=== PATIENT | female | born 1970 | race Caucasian/White ===

== ENCOUNTER 2017-06-05 23:40 | Emergency (ER) | payer OTHER ==
[~2017-06-05] VITALS: Ht 157.5 cm; Wt 68.9 kg
--- NOTE | ~2017-06-05 | CT2 ---
[facility] A Service of [facility] RADIOLOGY TEXT RESULTS PATIENT: ROSALINDA OKEEFE LOCATION: SED : 72 UNIT #: [id number] AGE: [address]: Gianfranco Ivy MD SEX: F ORDER DR: [id number] [address] [address] [id number] MR#: [id number] Acc #: [id number] NAME: ROSALINDA OKEEFE : 1970 SEX: F STUDY DATE/TIME: 06/06/2017 1:32 UNIT: SED ROOM: STUDY DESCRIPTION: CT Abd and Pelv W Cont Attending Physician: Gianfranco Ivy M.D. Ordering Physician: Gianfranco Ivy M.D. Primary Care Physician: Carlos Narayan M.D. MEDICAL IMAGING REPORT This report is preliminary unless electronic signature is present. EXAM CT abdomen and pelvis with contrast, 06/06/2017 HISTORY 46-year-old female in the ED complaining of 1-day history of bilateral lower abdomen pain with nausea. TECHNIQUE CT examination of the abdomen and pelvis was performed with IV contrast. GI contrast material was not consumed. This CT examination was performed with one or more of the following radiation dose reduction techniques: automatic exposure control, adjustment of mA and/or kV according to patient size, and iterative reconstruction. FINDINGS ABDOMEN: Liver, pancreas and spleen are normal in size and appearance. No gallbladder distension or bile duct dilatation. Both kidneys are negative with no evidence of urinary obstruction. Small bowel and colon are normal in caliber and appearance, as imaged. The appendix is not well seen but is negative where visualized. PELVIS: Uterus, ovaries, urinary bladder and rectum are within normal limits. No inguinal hernia or abdominal wall hernia. Limited lung base images show no active disease in the lower chest. IMPRESSION Negative CT examination of the abdomen and pelvis. Dictated by... [facility] A Service of [facility] RADIOLOGY TEXT RESULTS PATIENT: RSOALINDA OKEEFE LOCATION: SED : 72 UNIT #: [id number] AGE: [address]: Gianfranco Ivy MD SEX: F ORDER DR: Carlos Shukla M.D. THIS IS AN ELECTRONICALLY VERIFIED REPORT Carlos Shukla M.D. at 06/06/2017 9:46 PM GALO/lashay TD: 06/06/2017 10:17 JOB #: [id number] MEDICAL IMAGING REPORT Page 1 of 1
[2017-06-05] MEDS ORDERED: ZOLOFT100 MG PO (23:49)
[2017-06-05] MEDS ORDERED: OMEPRAZOLE20 M2 PO (23:49)
[2017-06-06 00:42] LABS: BASOPHIL% 0.6 % (0-2.5); EOSINOPHIL# 0.1 X10e3 (0-0.7); EOSINOPHIL% 2.1 % (0.0-7.0); HEMATOCRIT 38.4 % (35.0-45.0); LYMPHOCYTE# 1.1 X10e3 (1.0-3.5); LYMPHOCYTE% 16.4 % (17.0-45.0); MEAN CELL VOLUME 91.6 FL (83-96); MEAN CORPUSCULAR HGB CONC 33.8 g/dL (30-36); MEAN PLATELET VOLUME 8.5 FL (6.5-11.5); MONOCYTE# 0.5 X10e3 (0-1.0); NEUTROPHIL# 4.9 X10e3 (1.5-7.1); NEUTROPHIL% 72.9 % (40-75); PLATELET COUNT 272 X10e3 (140-420); RED CELL DISTRIBUTION WIDTH 12.8 % (11.0-15.5); WHITE BLOOD COUNT 6.8 X10e3 (4.0-10.5)
[2017-06-06 00:43] LABS: DIFF IND NO
[2017-06-06 01:00] LABS: ALBUMIN SERUM 4.3 g/dL (3.5-5.0); ALKALINE PHOSPHATASE 49 U/L (32-92); ALT (SGPT) 19 U/L (10-40); AST (SGOT) 21 U/L (10-42); BILIRUBIN, DIRECT <0.1 mg/dL (0.0-0.2); BILIRUBIN,INDIRECT 0.3 mg/dL (0.0-0.9); BILIRUBIN,TOTAL 0.4 mg/dL (0.2-2.0); BLOOD UREA NITROGEN 17 mg/dL (9-23); BUN/CREATININE RATIO 24.28; CALCIUM SERUM 8.5 mg/dL (8.4-10.2); CARBON DIOXIDE 27 mmol/L (22-31); CHLORIDE 111 mmol/L (100-111); CREATININE SERUM 0.7 mg/dL (0.6-1.4); GLOM FILT RATE Estimated 104.6 mL/min (>60); GLUCOSE FASTING 108 mg/dL (70-110); LIPASE 123 U/L (22-51); PROTEIN TOTAL SERUM 7.2 g/dL (6.0-8.3); SODIUM 140 mmol/L (135-145)
[2017-06-12] MEDS ORDERED: BENTYL20 MG PO (07:33)
[2017-06-12] MEDS ORDERED: FLONASE ALLERG9.9 ML (07:33)
[2017-06-12] MEDS ORDERED: ZYRTEC10 M2 PO (07:33)
== END 2017-06-06 03:22 | disposition home or self-care (01) ==
LOC: SED 23:40
PROVIDERS: Physician Assistant
DX: R10.84 Generalized abdominal pain (principal); R63.0 Anorexia; R11.0 Nausea; K21.9 Gastro-esophageal reflux disease without esophagitis
CPT/HCPCS: 74177; 80048; 80076; 83690; 84703; 85025; 96361; 96374; 96375; 99284; J2270; J2405; Q9967

== ENCOUNTER → 2017-06-08 | Outpatient (CLI) | payer OTHER ==
[~2017-06-08] MED LIST: BENTYL20 MG PO; FLONASE ALLERG9.9 ML; OMEPRAZOLE20 M2 PO; ZOLOFT100 MG PO; ZYRTEC10 M2 PO
[2017-06-08 10:26] LABS: HEMATOCRIT 38.9 % (35.0-45.0); HEMOGLOBIN 12.9 gm/dL (12.0-16.0); MEAN CELL VOLUME 91.1 FL (83-96); MEAN CORPUSCULAR HEMOGLOBIN 30.3 PG (28-34); MEAN CORPUSCULAR HGB CONC 33.3 g/dL (30-36); MEAN PLATELET VOLUME 8.6 FL (6.5-11.5); RED BLOOD COUNT 4.27 X10e (3.90-5.30); RED CELL DISTRIBUTION WIDTH 12.3 % (11.0-15.5); WHITE BLOOD COUNT 5.9 X10e3 (4.0-10.5)
[2017-06-08 11:05] LABS: ALBUMIN SERUM 4.4 g/dL (3.5-5.0); BILIRUBIN,TOTAL 0.7 mg/dL (0.2-2.0); BUN/CREATININE RATIO 17.14; CALCIUM SERUM 9.5 mg/dL (8.4-10.2); CREATININE SERUM 0.7 mg/dL (0.6-1.4); GLOM FILT RATE Estimated 104.6 mL/min (>60); POTASSIUM 4.1 mmol/L (3.5-5.1); PROTEIN TOTAL SERUM 7.5 g/dL (6.0-8.3)
== END | disposition home or self-care (01) ==
LOC: CLAB 09:28
PROVIDERS: Internal Medicine
DX: K85.90 Acute pancreatitis without necrosis or infection, unspecified (principal)
CPT/HCPCS: 36415; 80053; 82150; 83690; 85027; 86140

== ENCOUNTER → 2017-06-12 | Day surgery (SDC) | payer OTHER | END | disposition home or self-care (01) | LOC: COPS 07:05 | DX: K29.80 Duodenitis without bleeding (principal); K29.50 Unspecified chronic gastritis without bleeding; K20.9 Esophagitis, unspecified; Z79.899 Other long term (current) drug therapy; Z98.890 Other specified postprocedural states | CPT/HCPCS: 84703; 88305; 88312; J2250 ==

== ENCOUNTER → 2017-06-13 | Outpatient (CLI) | payer OTHER ==
--- NOTE | ~2017-06-13 | ST ---
Unit #: [id number] #: [id number] Patient: ROSALINDA OKEEFE [id number] [address] [address] [id number] O MR#: [id number] NAME: ROSALINDA OKEEFE : 1970 SEX: F STUDY DATE/TIME: 06/22/2017 UNIT: CEKG ROOM: STUDY DESCRIPTION: Attending Physician: Erasmo Gutierrez M.D. Referring Physician: Erasmo Gutierrez M.D. Primary Care Physician: Carlos Narayan M.D. CARDIOLOGY REPORT EXAM Stress ECG. INDICATION Dyspnea. SUMMARY The patient exercised on Leonard protocol for 4 minutes and 47 seconds. Heart rate increased from 86 to 176, within the first minute of exercise the heart rate was 123. Blood pressure increased from 103/62 to 130/80. At the end of stage 1 of exercise, the heart rate was 157. The patient did not experience any angina. The resting ECG was normal. With stress there was significant T-wave inversion in leads 2, 3, AVF, V4 through V6. With continued stress T-waves became biphasic in V3, but otherwise, stayed inverted. There was significant shortness of breath. There were no significant ST changes. There was mild lightheadedness. IMPRESSION 1. Stress ECG technically shows no ST depression which qualifies as ischemia. However, the immediate T-wave inversion is suggestive of ischemia. 2. Severe deconditioning based on the patient's age. 3. Very rapid heart rate increased within one minute of exercise. 4. Consider stress nuclear study, or stress echo. Further evaluation is recommended. Dictated by... Skip Kaplan M.D. SAL/swapna TD: 06/23/2017 10:19 JOB #: [id number] Unit #: [id number] #: [id number] Patient: ROSALINDA OKEEFE CARDIOLOGY REPORT Page 1 of 1 X Skip Kaplan MD CARDIOLOGY REPORT
--- NOTE | ~2017-06-13 | OR ---
Unit #: [id number] #: [id number] Patient: ROSALINDA OKEEFE [id number] [address] [address] [id number] O MR#: [id number] NAME: ROSALINDA OKEEFE ROOM: Date of Procedure: 06/12/2017 Admission Date: 06/13/2017 Surgeon: Rodriguez Sam M.D. : 1970 Attending Physician: Erasmo Gutierrez M.D. Referring Physician: Erasmo Gutierrez M.D. Primary Care Physician: Carlos Narayan M.D. OPERATIVE REPORT PROCEDURE PERFORMED Esophagogastroduodenoscopy with biopsy. INDICATIONS FOR PROCEDURE The patient with severe epigastric pain, nausea, vomiting. Recent CT scan and lab work have been unremarkable. MEDICATIONS Monitored anesthesia. POSTOPERATIVE FINDINGS 1. Small segment of Ortiz esophagus. Biopsies taken. 2. Diffuse gastritis and mild duodenitis. Biopsies taken separately from both places. PLAN Continue with PPI therapy and symptomatic treatment. DESCRIPTION OF PROCEDURE The patient was explained of the procedure, risks, and benefits along with the risk and benefits of anesthesia. She was brought to the endoscopy room. Propofol anesthesia was given. Bite block was placed. The scope was passed down the mouth into the esophagus, stomach, duodenum, and distal duodenum. Findings as described. Biopsies were taken. Gently, I pulled the scope out of the patient's mouth. She tolerated it well. Dictated by... Anat Wang/lissa TD: 06/12/2017 16:41 JOB #: [id number] CC: Carlos Narayan M.D. Unit #: [id number] #: [id number] Patient: ROSALINDA OKEEFE OPERATIVE REPORT Page 1 of 1 X Rodriguez Sam MD X PROCEDURE OPERATIVE NOTE
== END | disposition home or self-care (01) ==
LOC: CEKG 08:55
DX: R00.2 Palpitations (principal); I35.1 Nonrheumatic aortic (valve) insufficiency
CPT/HCPCS: 93017; 93306